=== PATIENT | female | born 1965 | race Two or more races ===

== ENCOUNTER 2024-09-21 10:14 | Outpatient (CLI) | payer OTHER ==
[~2024-09-21 10:14] MED LIST: ATACAND4 MG; CARAFATE SU1 G/10 ML PO; PROTONIX20 MG PO; ZONEGRAN100 MG PO
== END 2024-09-21 10:15 | disposition home or self-care (01) ==
LOC: NUCLEAR 10:14
PROVIDERS: ATTEND Internal Medicine
DX: E11.9 Type 2 diabetes mellitus without complications (principal)

== ENCOUNTER 2025-01-19 11:32 | Outpatient (CLI) | payer OTHER | END 2025-01-19 11:44 | disposition home or self-care (01) | LOC: SONOGRAMA 11:32 | PROVIDERS: ATTEND Internal Medicine Gastroenterology | DX: R10.11 Right upper quadrant pain (principal) ==